=== PATIENT | female | born 1995 ===

== ENCOUNTER 2023-04-23 19:19 | Inpatient (IN) | payer BC ==
[~2023-04-23] VITALS: Ht 162.6 cm; Wt 60.9 kg
[2023-04-23 19:35] VITALS: BP 116/75
[2023-04-23] MEDS ORDERED: 1/2 NS 250ml250 ML (19:56)
[2023-04-23] MEDS ORDERED: PRENATAL TABLE1 EAC2 PO (19:56)
[2023-04-23 20:14] LABS: BASOPHILS ABSOLUTE AUTO 0.04 K/mm3 (0.00-0.23); BASOPHILS PERCENT AUTO 1 % (0-2); EOSINOPHILS ABSOLUTE AUTO 0.05 K/mm3 (0.00-0.68); EOSINOPHILS PERCENT AUTO 1 % (0-6); Hematocrit 31.7 % (33.0-51.0); Hemoglobin 10.8 g/dL (11.5-16.0); IMMATURE GRAN ABSOLUTE AUTO 0.03 K/mm3 (0.00-0.10); IMMATURE GRAN PERCENT AUTO 0 % (0-1); LYMPHOCYTES ABSOLUTE AUTO 2.13 K/mm3 (0.84-5.20); LYMPHOCYTES PERCENT AUTO 24 % (21-46); MONOCYTES ABSOLUTE AUTO 0.39 K/mm3 (0.16-1.47); MONOCYTES PERCENT AUTO 4 % (4-13); Mean Corpuscular HGB 28.4 pg (26.0-34.0); Mean Corpuscular HGB Conc 34.1 g/dL (31.5-36.5); Mean Corpuscular Volume 83 fL (80-100); Mean Platelet Volume 10.6 fL (9.1-12.4); NEUTROPHILS ABSOLUTE AUTO 6.24 K/mm3 (1.96-9.15); NEUTROPHILS PERCENT AUTO 70 % (41-73); Platelet Count 280 K/mm3 (150-400); RDW Coefficient Variation 12.5 % (11.7-14.2); RDW Standard Deviation 37.7 fL (35.1-46.3); White Blood Cell Count 8.88 K/mm3 (4.00-11.30)
[2023-04-23 22:29] VITALS: BP 111/71
[2023-04-24] VITALS (31 sets, daily range): BP systolic 88–124; BP diastolic 53–78
[2023-04-25 00:28] VITALS: BP 104/69
--- NOTE | 2023-04-25 02:35 | NUR ---
Pt asked for pointers on getting baby to be calm. Diaper is clean. Pt stated she fed baby for 10 min and will attempt to feed again.Baby was also burped but still seems hungry, pt will call if feeding doesnt help.
--- NOTE | 2023-04-25 05:51 | NUR ---
pt requested baby upon waking.
[2023-04-25 06:28] LABS: Hematocrit 28.3 % (33.0-51.0); Hemoglobin 9.5 g/dL (11.5-16.0); Mean Corpuscular HGB 28.7 pg (26.0-34.0); Mean Corpuscular HGB Conc 33.6 g/dL (31.5-36.5); Mean Corpuscular Volume 86 fL (80-100); Mean Platelet Volume 10.6 fL (9.1-12.4); Platelet Count 204 K/mm3 (150-400); RDW Coefficient Variation 12.7 % (11.7-14.2); Red Blood Cell Count 3.31 M/mm3 (3.80-5.20); White Blood Cell Count 14.05 K/mm3 (4.00-11.30)
[2023-04-25 07:31] VITALS: BP 119/83
--- NOTE | 2023-04-25 10:10 | NUR ---
CRYSTAL FROM CARE MANAGEMENT AT PT BEDSIDE.
[2023-04-25 11:49] VITALS: BP 125/76
[2023-04-25] MEDS ORDERED: IBUP800 PO (11:56)
--- NOTE | 2023-04-25 13:17 | NUR ---
BANDS MATCHED. PT DISCHARGED TO HOME WITH INFANT.
== END 2023-04-25 13:15 | disposition home or self-care (01) | DRG 806 ==
LOC: OBS 19:19 → BC 19:22 → OBS 19:36 → BC 19:48
PROVIDERS: Family Medicine; ADMIT Advanced Practice Midwife
PROC: 10E0XZZ Delivery of Products of Conception, External Approach (ICD-10-PCS; principal; 2023-04-24)
PROC: 10907ZC Drainage of Amniotic Fluid, Therapeutic from Products of Conception, Via Natural or Artificial Opening (ICD-10-PCS; 2023-04-24)
PROC: 0HQ9XZZ Repair Perineum Skin, External Approach (ICD-10-PCS; 2023-04-24)
PROC: 3E0R3BZ Introduction of Anesthetic Agent into Spinal Canal, Percutaneous Approach (ICD-10-PCS; 2023-04-24)
PROC: 00HU33Z Insertion of Infusion Device into Spinal Canal, Percutaneous Approach (ICD-10-PCS; 2023-04-24)
PROC: 3E033VJ Introduction of Other Hormone into Peripheral Vein, Percutaneous Approach (ICD-10-PCS; 2023-04-24)
PROC: 3E0P7VZ Introduction of Hormone into Female Reproductive, Via Natural or Artificial Opening (ICD-10-PCS; 2023-04-24)
DX: O36.5930 Maternal care for other known or suspected poor fetal growth, third trimester, not applicable or unspecified (principal); O99.324 Drug use complicating childbirth; Z37.0 Single live birth; Z3A.39 39 weeks gestation of pregnancy; O70.0 First degree perineal laceration during delivery; F12.90 Cannabis use, unspecified, uncomplicated; O90.81 Anemia of the puerperium
CPT/HCPCS: 36415; 51702; 85025; 85027; 86850; 86900; 86901; A9270; J1885; J2405; J2590; J3010; J7120